=== PATIENT | male | born 1955 | race Caucasian/White ===

== ENCOUNTER 2018-11-05 06:30 | Day surgery (SDC) | payer OTHER ==
[~2018-11-05] VITALS: Ht 188 cm; Wt 105.6 kg
[2018-11-05] VITALS (17 sets, daily range): BP systolic 134–179; BP diastolic 64–90; PULSE 60–80; RESP 10–18; Ht 188 cm; Wt 105.6 kg
[2018-11-05] MEDS ORDERED: PROPOFOL 200 MG INJ ONE (07:00)
[2018-11-05] MEDS ORDERED: DESFLURANE 15 MIN ONE (07:00)
[2018-11-05] MEDS ORDERED: TAMS0.4C2 PO (07:42)
[2018-11-05] MEDS ORDERED: ALLO300T2 PO (07:42)
[2018-11-05] MEDS ORDERED: SIMV10TA PO (07:42)
[2018-11-05] MEDS ORDERED: CIPROFLOXACIN 400MG/D5W 200 ML IVPB SCH (09:00)
--- NOTE | 2018-11-05 10:40 | PREAC ---
Date/Time of Note Date/Time of Note DATE: 11/05/18 TIME: 10:37 Anesthesia Eval and Record Evaluation Time Pre-Procedure Interview DATE: 11/05/18 TIME: 10:37 Age 63 Sex male NPO: 8 hrs Preoperative diagnosis kidney stone Planned procedure cystoscopy Past Medical History Past Medical History: Includes Cardio: Dyslipidemia Musculoskeletal: Other (gout ) Surgery & Anesthesia Issues No known issue (no hx of GA, denies fm hx of problems with GA ) Meds Anticoagulation: No Beta Belen within 24 hr: No Reason Beta Belen not given: Pt. not on B-Belen Reported Medications Tamsulosin Hcl* (Tamsulosin Hcl*) 0.4 Mg Cap.er.24h, 0.4 MG PO HS, CAP 11/05/18 Simvastatin* (Zocor*) 10 Mg Tablet, 10 MG PO QHS, #30 TAB 11/05/18 Allopurinol* (Allopurinol*) 300 Mg Tablet, 300 MG PO DAILY, TAB 11/05/18 Current Medications Ciprofloxacin/ Dextrose 200 ml @ 200 mls/hr PRE-OP IVPB ; Start 11/05/18 at 09:00; Stop 11/05/18 at 19:00 Meds reviewed: Yes Allergies Coded Allergies: No Known Allergy (Unverified , 11/05/18) Allergies Reviewed: Yes Labs/Studies Labs Reviewed: Reviewed by anesthesiologist test: N/A Pre-procedure Exam Last vitals Vital Signs Date Temp Pulse Resp B/P (MAP) Pulse Ox O2 O2 Flow FiO2 Time Delivery Rate 11/05/18 97.5 60 16 134/64 98 08:52 (87) Airway: Adequate mouth opening, Adequate thyromental dist Mallampati: Mallampati IV Teeth: Normal Lung: Normal Heart: Normal ASA Physical Status ASA physical status: 2 Emergency: None Pre-operative Attestations Prior to commencing anesthesia and surgery, the patient was re-evaluated, there was verification of: *The patient's identity *The results of appropriate recent lab work and preoperative vital signs *The above evaluation not changing prior to induction *Anesthetic plan, risk benefits, alternative and complications discussed with patient/family; questions answered; patient/family understands, accepts and wishes to proceed. ELIZABETH AMOS DO Nov 05, 2018 10:40
--- NOTE | 2018-11-05 10:41 | HPN ---
Date/Time of Note Date/Time of Note DATE: 11/05/18 TIME: 10:41 Interval H&P Admission Note Pt. seen H&P reviewed: No system changes ELLY CHAMBERS Nov 05, 2018 10:41
[2018-11-05] MEDS ORDERED: LIDOCAINE 2% (SDV) 5 ML INJ ONE (10:54)
[2018-11-05] MEDS ORDERED: ETOMIDATE 20 MG INJ ONE (10:54)
[2018-11-05] MEDS ORDERED: FENTAnyl 50 MCG/ML VIAL ONE (10:55)
[2018-11-05] MEDS ORDERED: MIDAZOLAM 1 MG/ML 2 ML INJ ONE (10:55)
[2018-11-05] MEDS ORDERED: LABETALOL HCL 20MG INJ IV PRN (11:00)
[2018-11-05] MEDS ORDERED: ONDANSETRON 4 MG INJ IV PRN (11:00)
[2018-11-05] MEDS ORDERED: hydrALAzine 20 MG INJ IV PRN (11:00)
[2018-11-05] MEDS ORDERED: MEPERIDINE 25 MG INJ IV PRN (11:00)
[2018-11-05] MEDS ORDERED: HYDROmorphONE 1 MG/5 ML IV SYRINGE IV PRN ×2 (11:00)
[2018-11-05] MEDS ORDERED: OXYCODONE/ACETAMINOPHEN (5/325) TAB PO PRN ×2 (11:00)
[2018-11-05] MEDS ORDERED: DIPHENHYDRAMINE 50 MG INJ IV PRN (11:00)
[2018-11-05] MEDS ORDERED: CIPROFLOXACIN 400MG/D5W 200 ML ONE (11:02)
[2018-11-05] MEDS ORDERED: ONDANSETRON 4 MG INJ ONE (11:06)
--- NOTE | 2018-11-05 11:48 | PAC ---
Date/Time of Note Date/Time of Note DATE: 11/05/18 TIME: 11:47 Post-Anesthesia Notes Post-Anesthesia Note Last documented vital signs Vital Signs Date Temp Pulse Resp B/P (MAP) Pulse Ox O2 O2 Flow FiO2 Time Delivery Rate 11/05/18 98 86 16 150/69 98 1147 Activity: WNL Respiratory function: WNL Cardiovascular function: WNL Mental status: Baseline Pain reasonably controlled: Yes Hydration appropriate: Yes Nausea/Vomiting absent: Yes ELIZABETH AMOS DO Nov 05, 2018 11:48
--- NOTE | 2018-11-05 11:48 | PDOCDIS ---
Discharge Instructions DIAGNOSIS Discharge Diagnosis Bladder stone and urethral stricture CONDITION Hermann Patient Condition: Koko Good HOME CARE INSTRUCTIONS: Hermann Diet Instructions: Koko Regular ACTIVITY: Hermann Activity Restrictions: Koko Slowly Increase Activity Hermann Bathing Restrictions: Koko Shower FOLLOW UP/APPOINTMENTS Follow-up Plan Follow up in office on Saturday - Saturday fro removal of Fonseca, call for date and time REFERRALS Hermann Referring Provider: ELLY Stanton EVAN Nov 05, 2018 11:48
--- NOTE | 2018-11-05 11:51 | OPR ---
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
--- NOTE | 2018-11-05 13:34 | OPR ---
DATE OF OPERATION: PREOPERATIVE DIAGNOSES: 1. Benign prostatic hypertrophy. 2. Bladder stones. POSTOPERATIVE DIAGNOSES: 1. Benign prostatic hypertrophy. 2. Bladder stones 3. Urethral stricture. PROCEDURE: Cystoscopy, urethral dilatation, endoscopic holmium laser lithotripsy of bladder stone. SURGEON: Ottoniel Chambers MD ANESTHESIA: General. SPECIMENS: None. DESCRIPTION OF PROCEDURE: The patient was brought into the operating room and placed on the operatin g room table in supine lithotomy position. He was prepped and draped in usual fashion after anesthes ia was induced. A timeout was undertaken. Appropriate pressure points were padded. He received pre operative antibiotic therapy. I was unable to insert a rigid cystoscope secondary to an anterior ure thral stricture so the anterior urethra was dilated with the male sounds from 14-Brazilian to 26-Brazilian which then easily allowed for the rigid cystoscope to be inserted into the urethra. The urethra was noted to be well dilated. Trilobar enlargement of the prostatic lobes was noted with very enlarged m edian lobe. With gentle manipulation, I was able to pass the rigid cystoscope over the median lobe i nto the bladder where there is marked trabeculation. Multiple bladder stones were identified and the y were removed with the Ellik evacuator except for 1 stone which was too large to be removed and thus utilizing a 940 micron holmium fiber. The stone was easily fragmented with holmium laser lithotrips y with an energy setting of 0.6 joules 6 Hz with watt setting of 3.6 and total energy of 33 joules. The stone easily fragmented and then was washed out with an Ellik evacuator. Repeat cystoscopy demon strated no further stone burden. Due to the enlarged prostate and urethral dilatation, it was decide d to insert to a 2-way Fonseca catheter. A 20-Brazilian 2-way Fonseca catheter was easily inserted into the bladder. The efflux of urine was noted to be clear. This was left to gravity drainage. He will be transferred to recovery room in stable condition and will follow up in the office for trial of void. He was discharged home on Sandy 5/325 one tab p.o. q.6 hours p.r.n., dispensed #25, no refill, no n oted complications. Dictated By: OTTONIEL CHAMBERS MD EGR/NTS Conf#: [id number] [facility]#: [id number]
== END 2018-11-05 14:41 | disposition home or self-care (01) ==
LOC: SDS 06:30
PROVIDERS: ATTEND Urology
DX: N20.0 Calculus of kidney (principal); N40.0 Benign prostatic hyperplasia without lower urinary tract symptoms; N35.919 Unspecified urethral stricture, male, unspecified site
CPT/HCPCS: 52317; 88300; J0360; J0744; J1170; J2250; J2405; J3010; Z7512; Z7610